=== PATIENT | female | born 1960 | race Caucasian/White ===

== ENCOUNTER → 2019-02-01 | Outpatient (CLI) | payer BC ==
[~2019-02-01] VITALS: Ht 165.1 cm; Wt 101.0 kg
[~2019-02-01] MED LIST: AMBIEN 10MG10 MG PO; LIPITOR 10MG10 MG PO; NORVASC 10MG10 MG PO; PREVACID 30MG30 M1 PO; ZOLOFT 100MG100 MG PO
[2019-02-01 09:48] VITALS: BP 161/109; PULSE 116
[2019-02-01 11:31] VITALS: BP 177/111; PULSE 114
== END ==
LOC: COL.RAD 09:00
DX: G43.009 Migraine without aura, not intractable, without status migrainosus (principal); G93.9 Disorder of brain, unspecified
CPT/HCPCS: A9585